=== PATIENT | female | born 1975 | race Caucasian/White ===

== ENCOUNTER 2022-09-15 20:16 | Emergency (ER) | payer OTHER ==
[~2022-09-15] VITALS: Ht 149.9 cm; Wt 71.7 kg
[2022-09-15 20:37] VITALS: BP_SYST 155; PULSE 97; RESP 19; TEMP 97.4; O2SAT 96
[2022-09-15] MEDS ORDERED: cefTRIAXone 1 GM in LIDOCAINE 1%, 20 ML MDV 2.1 ML IM ONE (21:15)
[2022-09-15 22:15] LABS: BASOPHILS # (AUTO) 0.1 K/uL (0.0-0.2); BASOPHILS % (AUTO) 0.8 % (0.0-2.0); EOSINOPHILS # (AUTO) 0.1 K/uL (0.0-0.4); EOSINOPHILS % (AUTO) 0.7 % (0.0-4.0); HEMATOCRIT 39.6 % (36-48); HEMOGLOBIN 13.1 g/dL (12.0-16.0); LYMPHOCYTES # (AUTO) 2.6 K/uL (1.0-5.5); LYMPHOCYTES % (AUTO) 30.4 % (20.5-51.5); MEAN CORPUSCULAR HEMOGLOBIN 30 pg (27-31); MEAN CORPUSCULAR HGB CONC 33 % (32-36); MEAN CORPUSCULAR VOLUME 90 fL (79.0-98.0); MONOCYTES # (AUTO) 0.8 K/uL (0.0-1.0); MONOCYTES % (AUTO) 9.8 % (1.7-9.3); NEUTROPHILS % (AUTO) 58.3 % (40.0-70.0); PLATELET COUNT (AUTO) 265 K/uL (130-430); RED BLOOD CELL COUNT(AUTO) 4.38 MIL/uL (4.2-6.2); RED CELL DISTRIBUTION WIDTH 13.7 % (9.0-15.0); WHITE BLOOD COUNT (AUTO) 8.6 K/uL (4.8-10.8)
[2022-09-15 22:26] LABS: CALCIUM 8.6 mg/dL (8.4-11.0); CREATININE 1.09 mg/dL (0.55-1.30)
[2022-09-15 22:31] LABS: ALBUMIN 3.2 g/dL (3.4-4.8); TOTAL BILIRUBIN 0.4 mg/dL (0.0-1.0)
[2022-09-15] MEDS ORDERED: KETOROLAC TROMETHAMINE 60 MG/2 ML VIAL IM ONE (23:00)
[2022-09-15] MEDS ORDERED: CEPH-548 PO (23:09)
[2022-09-15 23:15] VITALS: BP_SYST 155; PULSE 97; RESP 19; TEMP 97.4; O2SAT 96
== END 2022-09-15 23:15 | disposition home or self-care (01) ==
LOC: SED 20:16
DX: L03.115 Cellulitis of right lower limb (principal); R22.41 Localized swelling, mass and lump, right lower limb; I11.0 Hypertensive heart disease with heart failure; I50.9 Heart failure, unspecified; E10.9 Type 1 diabetes mellitus without complications; Z88.0 Allergy status to penicillin; Z88.1 Allergy status to other antibiotic agents; Z88.8 Allergy status to other drugs, medicaments and biological substances; Z79.899 Other long term (current) drug therapy
CPT/HCPCS: 99284; 80053; 85025; 87040; 36415; 96372; 83605; J0696; J1885; J2001